=== PATIENT | male | born 1975 | race American Indian/Alaskan Native ===

== ENCOUNTER 2019-10-10 09:32 | Emergency (ER) | payer OTHER ==
--- NOTE | 2019-10-10 13:01 | Emergency Department Report ---
HPI - General Chief Complaint: Extremity Problem,Nontraumatic Time Seen by Provider: 10/10/19 12:35 - HPI HPI: 44-year-old -[place] male presents to the emergency department with a complaint of a one to two-week history of progressively worsening right thigh pain. Initially the patient went to see his primary care physician for some right-sided low back pain in which she says he was given some type of an injection into the back. Shortly afterwards the leg pains started. He feels that the thigh is slightly swollen as well. He denies any fall or trauma. He is tried some [id number] pain medication without any relief. No recent travel, immobility, recent surgery. Denies any other past medical history. ED Past Medical Hx - Past Medical History Previous Medical History?: No - Surgical History Past Surgical History?: No - Medications Home Medications: Home Medications Medication Instructions Recorded Confirmed Last Taken Type Cyclobenzaprine [Flexeril] 10 mg PO TID PRN #12 tablet 10/10/19 Unknown Rx Ibuprofen [Motrin 800 MG tab] 800 mg PO Q8HR PRN #20 tablet 10/10/19 Unknown Rx ED Review of Systems ROS: Stated complaint: LEG PAIN Other details as noted in HPI Comment: All other systems reviewed and negative Constitutional: denies: chills, fever Respiratory: denies: shortness of breath Cardiovascular: denies: chest pain Gastrointestinal: denies: abdominal pain Musculoskeletal: arthralgia, myalgia Skin: denies: rash, lesions Neurological: denies: numbness, paresthesias Physical Exam - Physical Exam Vital Signs: Vital Signs 10/10/19 09:37 Temperature 97.4 F L Pulse Rate 97 H Respiratory 16 Rate Blood Pressure 162/93 O2 Sat by Pulse 95 Oximetry ED Course Vital Signs 10/10/19 09:37 Temperature 97.4 F L Pulse Rate 97 H Respiratory 16 Rate Blood Pressure 162/93 O2 Sat by Pulse 95 Oximetry Critical care attestation.: If time is entered above; I have spent that time in minutes in the direct care of this critically ill patient, excluding procedure time. ED Disposition Clinical Impression: Right thigh pain Hypertension Qualifiers: Hypertension type: essential hypertension Qualified Code(s): I10 - Essential (primary) hypertension Disposition: - TO HOME OR SELFCARE Is pt being admited?: No Condition: Stable Instructions: Arthralgia (ED), Hypertension (ED) Additional Instructions: Please follow up with your primary care physician. I am giving you a referral for a local orthopedist, Dr. Wilson, to follow up regarding your right thigh/leg pain. Return to the emergency Department with any worsening of your symptoms or any acute distress. You have been prescribed a medication that can be sedating. Therefore, this medication cannot be taken prior to driving, working, being responsible for children, and cannot be mixed with alcohol of any quantity. Prescriptions: Cyclobenzaprine [Flexeril] 10 mg PO TID PRN #12 tablet PRN Reason: Muscle Spasm Ibuprofen [Motrin 800 MG tab] 800 mg PO Q8HR PRN #20 tablet PRN Reason: Pain , Severe (7-10) Referrals: KATHY ORTIZ MD [Primary Care Provider] - 3-5 Days SALVADOR WILSON MD [Staff Physician] - 3-5 Days Time of Disposition: 15:39
--- NOTE | 2019-10-10 14:58 | Vascular Lab Report ---
DUPLEX DOPPLER LOWER EXTREMITY VEINS, RIGHT INDICATION: right leg pain. TECHNIQUE: Duplex doppler imaging was performed through the veins of the right lower extremity using venous comp ression and other maneuvers. COMPARISON: None available. FINDINGS: Common Femoral vein: Negative. Superficial Femoral vein: Negative. Popliteal vein: Negative. Calf veins: Negative. Additional findings: None. IMPRESSION: 1. No sonographic evidence for DVT in the right lower extremity. Signer Name: Kirill Soria MD Signed: 10/10/2019 2:54 PM Workstation Name: [id number]
--- NOTE | 2019-10-10 15:52 | XRay Report ---
RIGHT FEMUR 2 VIEWS INDICATION: right leg pain. COMPARISON: None. IMPRESSION: No acute osseous or soft tissue abnormality. No significant DJD. Signer Name: Isac Rios Jr, MD Signed: 10/10/2019 3:47 PM Workstation Name: [id number]
[2019-10-10 16:29] VITALS: BP 139/94
== END 2019-10-10 16:28 | disposition home or self-care (01) ==
LOC: ED 09:32
DX: M79.651 Pain in right thigh (principal); I10 Essential (primary) hypertension
CPT/HCPCS: 99284